=== PATIENT | female | born 1975 | race African-American/Black ===

== ENCOUNTER 2019-02-19 12:52 | Day surgery (SDC) | payer BC ==
[~2019-02-19] VITALS: Ht 172.7 cm; Wt 96.6 kg
[~2019-02-19 12:52] MED LIST: LEVOTAB10 PO; LISI40TA PO; OMEP40CA2 PO; PROAAER10 INH; QNAS80AE; [UNRECOGNIZED DRUG - CODE] PO
[2019-02-19] MEDS ORDERED: NS 1,000 ML IV ONE (13:15)
[2019-02-19] MEDS ORDERED: LIDOCAINE 2% INJ 100 MG/5 ML SDV (FOR ANES.) As Ordered ONE (13:35)
[2019-02-19] MEDS ORDERED: PROPOFOL 200 MG/20 ML VIAL As Ordered ONE ×2 (13:35→13:46)
--- NOTE | 2019-02-19 14:01 | ROOR ---
Patient Name: Maira Haskins Procedure Date: 02/19/2019 1:36 PM Date of : 1975 Age: 44 Room: [facility] Gender: Female Note Status: Finalized Procedure: Upper GI endoscopy Indications: Heartburn, Suspected gastro-esophageal reflux disease Providers: Diallo Castaneda MD Referring MD: Marquita Carpenter DO Requesting Provider: Medicines: Monitored Anesthesia Care Complications: No immediate complications. Procedure: Pre-Anesthesia Assessment: - Prior to the procedure, a History and Physical was performed, and patient medications and allergies were reviewed. The patient is competent. The risks and benefits of the procedure and the sedation options and risks were discussed with the patient. All questions were answered and informed consent was obtained. Patient identification and proposed procedure were verified by the physician, the nurse and the anesthesiologist in the procedure room. Mental Status Examination: alert and oriented. Airway Examination: normal oropharyngeal airway and neck mobility. Respiratory Examination: clear to auscultation. CV Examination: normal. Prophylactic Antibiotics: The patient does not require prophylactic antibiotics. Prior Anticoagulants: The patient has taken no previous anticoagulant or antiplatelet agents. ASA Grade Assessment: II - A patient with mild systemic disease. After reviewing the risks and benefits, the patient was deemed in satisfactory condition to undergo the procedure. The anesthesia plan was to use monitored anesthesia care (MAC). Immediately prior to administration of medications, the patient was re-assessed for adequacy to receive sedatives. The heart rate, respiratory rate, oxygen saturations, blood pressure, adequacy of pulmonary ventilation, and response to care were monitored throughout the procedure. The physical status of the patient was re-assessed after the procedure. The Endoscope was introduced through the mouth, and advanced to the second part of duodenum. The upper GI endoscopy was accomplished without difficulty. The patient tolerated the procedure well. Findings: LA Grade A (one or more mucosal breaks less than 5 mm, not extending between tops of 2 mucosal folds) esophagitis with no bleeding was found in the distal esophagus. Biopsies were taken with a cold forceps for histology. Verification of patient identification for the specimen was done by the physician and nurse using the patient's name, date and medical record number. Estimated blood loss was minimal. Diffuse minimal inflammation characterized by erythema and granularity was found in the gastric antrum. Biopsies were taken with a cold forceps for Helicobacter pylori testing. The duodenal bulb and second portion of the duodenum were normal. Impression: - LA Grade A reflux esophagitis. Rule out Greenberg's esophagus. Biopsied. - Gastritis. Biopsied. - Normal duodenal bulb and second portion of the duodenum. Recommendation: - Patient has a contact number available for emergencies. The signs and symptoms of potential delayed complications were discussed with the patient. Return to normal activities tomorrow. Written discharge instructions were provided to the patient. - Resume previous diet. - Follow an antireflux regimen. - Continue present medications. - Await pathology results. - Based on the biopsy results you will receive a phone call from GI clinic in 2-3 weeks to review the pathology results AND/OR your results will be faxed to your Primary care physician. - Return to primary care physician. Diallo Castaneda MD Diallo Castaneda MD 02/19/2019 2:01:22 PM Electronically signed by Diallo Castaneda MD Number of Addenda: 0 Note Initiated On: 02/19/2019 1:36 PM Estimated Blood Loss: Estimated blood loss was minimal.
[2019-02-19 14:26] VITALS: BP 151/89
== END 2019-02-19 14:28 | disposition home or self-care (01) ==
LOC: M OPP 12:52
PROVIDERS: ATTEND Internal Medicine Gastroenterology
DX: K21.0 Gastro-esophageal reflux disease with esophagitis (principal); K29.70 Gastritis, unspecified, without bleeding; R12 Heartburn

== ENCOUNTER → 2022-09-06 | Outpatient (CLI) | payer BC ==
[~2022-09-06] MED LIST changes: -LISI40TA PO; +LISI40TA4 PO; -OMEP40CA2 PO; +OMEP40CA4 PO
== END ==
LOC: M RAD 14:15
PROVIDERS: ATTEND Chiropractor
DX: M54.41 Lumbago with sciatica, right side (principal)

== ENCOUNTER → 2023-02-07 | Outpatient (REF) | payer BC | LOC: M LAB REF 17:08 | PROVIDERS: ATTEND Internal Medicine | DX: M25.562 Pain in left knee (principal); M25.462 Effusion, left knee ==

== ENCOUNTER 2023-10-31 07:47 | Day surgery (SDC) | payer BC ==
[~2023-10-31] VITALS: Ht 170.2 cm; Wt 91.4 kg
[~2023-10-31 07:47] MED LIST changes: +AMLO1TAB24 PO; +IRBE150T7 PO; +NS 1,000 ML IV ONE; +RA M500C PO; +TRI-TAB2 PO; +VITA100093 PO
[2023-10-31] MEDS ORDERED: propofoL 200 MG/20 ML VIAL As Ordered ONE ×2 (09:30→09:50)
[2023-10-31 09:56] VITALS: TEMP 98.8
[2023-10-31 10:15] VITALS: BP 167/98; O2SAT 100
== END 2023-10-31 10:25 | disposition home or self-care (01) ==
LOC: M OPP 07:47
PROVIDERS: ATTEND Internal Medicine Gastroenterology
DX: Z12.11 Encounter for screening for malignant neoplasm of colon (principal); D12.6 Benign neoplasm of colon, unspecified; K64.4 Residual hemorrhoidal skin tags; K64.8 Other hemorrhoids; Z79.83 Long term (current) use of bisphosphonates; Z79.811 Long term (current) use of aromatase inhibitors; Z79.899 Other long term (current) drug therapy

== ENCOUNTER → 2023-11-18 | Outpatient (REF) | payer BC ==
[~2023-11-18] MED LIST changes: -NS 1,000 ML IV ONE
== END ==
LOC: M LAB REF 18:19
PROVIDERS: ATTEND Physician Assistant Medical
DX: R05.9 Cough, unspecified (principal)